=== PATIENT | male | born 1960 | race Caucasian/White ===

== ENCOUNTER 2016-10-22 15:23 | Emergency (ER) | payer OTHER ==
[~2016-10-22] VITALS: Ht 195.6 cm; Wt 72.6 kg
[~2016-10-22 15:23] MED LIST: ABILIFY20 MG PO; BENAZEPRIL40 MG PO; COLACE250 MG PO; HYDROMORPHONE4 M1 PO; KLONOPIN2 MG PO; LANTUS INS100 UNITS/ SUBQ; METFORMIN500 MG PO; ONDANSETRON8 MG PO; RANITIDINE150 M1 PO
[2016-10-22 16:02] VITALS: BP 109/71
--- NOTE | 2016-10-22 18:54 | NUR ---
PT TO BED 8 AT THIS TIME.
--- NOTE | 2016-10-22 19:04 | NUR ---
55/M TO ED WITH C/O RIGHT WRIST PAIN AND LEFT ANKLE PAIN X2 DAYS S/P FALL. PT HAS ABOUT 1CM ABRASION TO LEFT ANKLE AND IS COMPLAINING OF LIMITED ROM IN RIGHT WRIST. PAIN 8/10. RADIAL PULSES PRESENT. LUNGS CLEAR BILAT. HR EVEN AND REGULAR. AAOX4. VSS. NO SIGNS OF DISTRESS.
--- NOTE | 2016-10-22 19:50 | NUR ---
Dr. Simpson evaluating patient at bedside.
[2016-10-22] MEDS ORDERED: KETOROLAC 30 MG/ML VIAL IM ONE (20:00)
[2016-10-22 20:38] VITALS: BP 109/71
--- NOTE | 2016-10-22 20:38 | NUR ---
Patient discharged with v/s stable. Written and verbal after care instructions given and explained. Patient alert, oriented and verbalized understanding of instructions. Ambulatory with steady gait. All questions addressed prior to discharge. ID band removed. Patient advised to follow up with PMD. Rx of CLONAZEPAM, NAPROSYN given. Patient educated on indication of medication including possible reaction and side effects. Opportunity to ask questions provided and answered.
== END 2016-10-22 20:38 | disposition home or self-care (01) ==
LOC: MED 15:23
DX: S93.402A Sprain of unspecified ligament of left ankle, initial encounter (principal); S60.221A Contusion of right hand, initial encounter; I10 Essential (primary) hypertension; E11.9 Type 2 diabetes mellitus without complications; Z79.4 Long term (current) use of insulin; Z88.0 Allergy status to penicillin; W01.0XXA Fall on same level from slipping, tripping and stumbling without subsequent striking against object, initial encounter; Y93.89 Activity, other specified; Y92.89 Other specified places as the place of occurrence of the external cause; Y99.8 Other external cause status
CPT/HCPCS: 29125; 73110; 73130; 73610; 96372; 99284; J1885